=== PATIENT | female | born 1950 | race Caucasian/White ===

== ENCOUNTER 2016-09-02 13:33 | Outpatient (CLI) | payer MEDICARE, OTHER | END 2016-09-02 13:34 | disposition home or self-care (01) | DX: N39.0 Urinary tract infection, site not specified (principal) ==

== ENCOUNTER 2016-09-12 08:56 | Outpatient (CLI) | payer MEDICARE, OTHER | END 2016-09-12 08:57 | disposition home or self-care (01) | DX: N39.0 Urinary tract infection, site not specified (principal) ==

== ENCOUNTER 2016-09-30 10:31 | Outpatient (CLI) | payer MEDICARE, OTHER ==
[2016-09-30 18:39] LABS: BILIRUBIN,DIRECT 0.1 mg/dL (0.1-0.5); TOTAL PROTEIN 7.4 g/dL (6.7-8.2)
== END 2016-09-30 10:32 | disposition home or self-care (01) ==
LOC: LAB.F 10:31
PROVIDERS: ATTEND Podiatrist
DX: R53.1 Weakness (principal)
CPT/HCPCS: 36415; 80076

== ENCOUNTER 2017-02-26 08:55 | Outpatient (CLI) | payer MEDICARE, OTHER | END 2017-02-26 08:56 | disposition home or self-care (01) | LOC: LAB.F 08:55 | PROVIDERS: ATTEND Family Medicine | DX: N39.0 Urinary tract infection, site not specified (principal) | CPT/HCPCS: 87086 ==

== ENCOUNTER 2017-04-07 12:58 | Outpatient (CLI) | payer MEDICARE, OTHER ==
--- NOTE | 2017-04-08 17:08 | Mammography Report ---
DIGITAL SCREENING MAMMOGRAM: 04/07/2017 CLINICAL INDICATION: A 66-year-old with personal history of left breast cancer status post lumpectom y and chemoradiation. COMPARISON: 02/2016, 10/2014, 10/2013, 10/2012, 02/2012, 09/2011, 10/2010, 09/2010, 07/2010. TECHNIQUE: Routine CC and MLO projections were obtained of the breasts. The breasts again demonstrate heterogeneously dense fibroglandular parenchyma bilaterally. Coarse an d punctate, typically benign calcifications are present. Postoperative and post-treatment changes in the left breast are stable. No suspicious masses, clustered microcalcifications, or regions of arch itectural distortion are identified. IMPRESSION: BENIGN FINDINGS. RECOMMENDATION: ROUTINE ANNUAL SCREENING UNLESS OTHERWISE CLINICALLY INDICATED. BIRADS CATEGORY: 2, BENIGN FINDINGS. STANDARD QUALIFYING STATEMENTS 1. This examination was reviewed with the aid of Computed-Aided Detection (CAD). 2. A negative or benign imaging report should not delay biopsy if clinically suspicious findings are present. Consider surgical consultation if warranted. More than 5% of cancers are not identified b y imaging. 3. Dense breasts may obscure an underlying neoplasm. JOB #: [id number] EXT JOB #:[id number]
== END 2017-04-07 12:59 | disposition home or self-care (01) ==
LOC: DI 12:58
PROVIDERS: ATTEND Internal Medicine Hematology & Oncology
DX: Z12.31 Encounter for screening mammogram for malignant neoplasm of breast (principal); Z85.3 Personal history of malignant neoplasm of breast
CPT/HCPCS: 77067

== ENCOUNTER 2017-05-16 07:10 | Outpatient (CLI) | payer MEDICARE, OTHER ==
--- NOTE | 2017-05-16 07:46 | XRAY Report ---
EXAM: CHEST RADIOGRAPHY EXAM DATE: 05/16/2017 07:22 AM. CLINICAL HISTORY: Follow-up abnormal chest radiograph. COMPARISON: 03/17/2017. TECHNIQUE: 2 views. FINDINGS: Lungs/Pleura: Numerous bilateral pulmonary nodules are again seen. Focal opacity previously seen at t he lateral left lung base has resolved. No significant pleural effusion is seen. No pneumothorax is n oted. Mediastinum: Heart and mediastinal contours are unremarkable. Other: None. IMPRESSION: 1. Numerous bilateral pulmonary nodules are again seen. 2. Focal opacity previously seen at the lateral left lung base has resolved. [facility] Referring Provider Line: [phone] SITE ID: [id number]
== END 2017-05-16 07:20 ==
LOC: DI 07:10
PROVIDERS: ATTEND Nurse Practitioner Family
DX: R91.8 Other nonspecific abnormal finding of lung field (principal)
CPT/HCPCS: 71046

== ENCOUNTER 2017-05-20 11:03 | Outpatient (CLI) | payer MEDICARE, OTHER | END 2017-05-20 11:04 | disposition home or self-care (01) | LOC: DI 11:03 | PROVIDERS: ATTEND Internal Medicine Hematology & Oncology | DX: R06.00 Dyspnea, unspecified (principal) | CPT/HCPCS: 0399T; 93306 ==

== ENCOUNTER 2018-03-02 10:10 | Outpatient (CLI) | payer MEDICARE, OTHER | END 2018-03-02 10:11 | disposition home or self-care (01) | LOC: LAB.R 10:10 | PROVIDERS: ATTEND Physician Assistant Medical | DX: R30.0 Dysuria (principal); N76.0 Acute vaginitis | CPT/HCPCS: 87086; 87491; 87591 ==

== ENCOUNTER 2018-04-09 12:06 | Outpatient (CLI) | payer MEDICARE, OTHER ==
--- NOTE | 2018-04-12 09:41 | Mammography Report ---
Reason: SCREENING MAMMO Procedure Date: 04/09/2018 Accession Number: [id number] / [id number] Procedure: NNEKA - Screening Mammo w/Sanidp CPT Code: FULL RESULT: EXAM: Screening Mammo w/Sandip DATE: 04/09/2018 12:42 PM CLINICAL HISTORY: Screening encounter. Personal history of left breast triple negative breast cancer status post lumpectomy and chemoradiation in 2009. TECHNIQUE: Bilateral CC and MLO views were obtained. A left medially exaggerated CC view was also obtained. COMPARISON: 04/07/2017 through 10/17/2013. FINDINGS: The breasts demonstrate heterogeneously dense fibroglandular parenchyma bilaterally. Posttreatment changes are again seen in the left breast. On the left MLO projection the surgerized region of the breast appears stable. On the cc 2-D projection there is questionably architectural distortion and increasing soft tissue density posteriorly and medially, possibly soft tissue overlap due to compression technique. The finding is not definitely clarified with 3-D tomographic technique. Additional spot views with magnification and possibly ultrasound of the medial left breast posteriorly covering the area of incision are required for clarification. No suspicious masses, clustered microcalcifications, or regions of architectural distortion are identified in the right breast. IMPRESSION: Incomplete examination RECOMMENDATION: Additional evaluation of the left breast with spot magnification views posteriorly and medially, possibly with ultrasound as above. BIRADS CATEGORY 0: Incomplete examination STANDARD QUALIFYING STATEMENTS: 1. This examination was not reviewed with the aid of Computer-Aided Detection (CAD). 2. A negative or benign imaging report should not preclude biopsy if clinically suspicious findings are present. 3. Dense breasts may obscure an underlying neoplasm. 4. This examination was reviewed with the aid of 3D breast imaging (tomosynthesis).
== END 2018-04-09 12:07 | disposition home or self-care (01) ==
LOC: DI 12:06
PROVIDERS: ATTEND Internal Medicine Hematology & Oncology
DX: Z12.31 Encounter for screening mammogram for malignant neoplasm of breast (principal); Z08 Encounter for follow-up examination after completed treatment for malignant neoplasm; Z85.3 Personal history of malignant neoplasm of breast
CPT/HCPCS: 77063; 77067

== ENCOUNTER 2018-04-14 14:01 | Outpatient (CLI) | payer MEDICARE, OTHER ==
--- NOTE | 2018-04-14 16:01 | Mammography Report ---
Reason: ABN MAMMO - LT SPEC VIEWS Procedure Date: 04/14/2018 Accession Number: [id number] / [id number] Procedure: NNEKA - Diag Special Views Dig LT CPT Code: FULL RESULT: EXAM: Diag Special Views Dig LT DATE: 04/14/2018 2:41 PM CLINICAL HISTORY: Diagnostic mammogram and ultrasound. The patient was recalled for questionable architectural distortion and increasing soft tissue density posteriorly and medially in the left breast. TECHNIQUE: Left spot magnified CC and spot magnified MLO views were obtained. Focused breast ultrasound was performed. COMPARISON: 11/06/2014 through 04/09/2018. FINDINGS: The breasts demonstrate heterogeneously dense fibroglandular parenchyma. The questionable increasing soft tissue density resolves with spot magnification and is attributed to previous tissue overlap. The architectural distortion stands but is consistent with previous mammogram imaging and occurs in the region of known prior surgical intervention, adjacent to scar and typically benign. Focused breast ultrasound reveals typical features of scar with no separate suspicious findings. No suspicious calcifications, architectural distortion or masses are seen. IMPRESSION: Benign findings RECOMMENDATION: Recommend routine annual Screening mammography unless otherwise clinically indicated. BIRADS CATEGORY 2: Benign findings STANDARD QUALIFYING STATEMENTS: 1. This examination was not reviewed with the aid of Computer-Aided Detection (CAD). 2. A negative or benign imaging report should not delay biopsy if clinically suspicious findings are present. Consider surgical consultation if warrented. More than 5% of cancers are not identified by imaging. 3. Dense breasts may obscure an underlying neoplasm. 4. This examination was reviewed with the aid of 3D imaging (tomography).
== END 2018-04-14 14:02 | disposition home or self-care (01) ==
LOC: DI 14:01
PROVIDERS: ATTEND Internal Medicine Hematology & Oncology
DX: R92.8 Other abnormal and inconclusive findings on diagnostic imaging of breast (principal); R92.2 Inconclusive mammogram
CPT/HCPCS: 76642

== ENCOUNTER 2018-06-09 08:00 | Outpatient (CLI) | payer MEDICARE, OTHER | END 2018-06-09 23:59 | disposition home or self-care (01) | LOC: LAB.R 08:00 | PROVIDERS: ATTEND Physician Assistant Medical | DX: N89.8 Other specified noninflammatory disorders of vagina (principal) | CPT/HCPCS: 87491; 87591 ==

== ENCOUNTER 2018-07-23 09:18 | Outpatient (CLI) | payer MEDICARE, OTHER ==
[2018-07-23 18:14] LABS: BASOPHILS % (AUTO) 0.7 %; EOSINOPHILS # (AUTO) 0.2 10^3/uL (0.0-0.7); EOSINOPHILS % (AUTO) 3.2 %; HGB - HEMOGLOBIN 12.5 g/dL (12.0-16.0); LYMPHOCYTES # (AUTO) 1.3 10^3/uL (1.5-3.5); LYMPHOCYTES % (AUTO) 24.6 %; MEAN CORPUSCULAR HEMOGLOBIN 29.2 pg (27.0-31.0); MEAN CORPUSCULAR HGB CONC 32.9 g/dL (32.0-36.0); MEAN CORPUSCULAR VOLUME 88.6 fL (81.0-99.0); MEAN PLATELET VOLUME 8.9 fL (7.9-10.8); MONOCYTES # (AUTO) 0.5 10^3/uL (0.0-1.0); MONOCYTES % (AUTO) 9.4 %; NEUTROPHILS # (AUTO) 3.2 10^3/uL (1.5-6.6); NEUTROPHILS % (AUTO) 62.1 %; PLT - PLATELET COUNT 211 10^3/uL (130-450); RED BLOOD COUNT 4.28 10^6/uL (4.20-5.40); RED CELL DISTRIBUTION WIDTH 13.9 % (12.0-15.0); WHITE BLOOD COUNT 5.2 x10^3/uL (4.8-10.8)
[2018-07-23 18:40] LABS: ALBUMIN 4.2 g/dL (3.2-5.5); ALBUMIN/GLOBULIN RATIO 1.1 (1.0-2.2); ALKALINE PHOSPHATASE 103 IU/L (42-121); ALT ALANINE AMINOTRANSFERASE 10 IU/L (10-60); AST ASPARTATE AMINOTRANSFERASE 22 IU/L (10-42); BILIRUBIN,TOTAL 1.1 mg/dL (0.2-1.0); BUN - BLOOD UREA NITROGEN 13 mg/dL (6-20); CALCIUM 9.6 mg/dL (8.5-10.3); CARBON DIOXIDE - CO2 29 mmol/L (21-32); CHLORIDE 97 mmol/L (101-111); CHOL/HDL RATIO 5.9 (<4.4); CHOLESTEROL 260 mg/dL; GLUCOSE 102 mg/dL (70-100); HDL CHOLESTEROL 44 mg/dL; LDL CHOLESTEROL,CALCULATED 142 mg/dL; LDL/HDL RATIO 3.2 (<4.4); SODIUM 135 mmol/L (135-145); VLDL CHOLESTEROL 74 mg/dL
[2018-07-23 18:45] LABS: THYROID STIMULATING HORMONE 0.74 uIU/mL (0.34-5.60)
[2018-07-23 18:51] LABS: FERRITIN 131.9 ng/mL (11.0-306.8)
[2018-07-23 21:13] LABS: CREATININE 0.7 mg/dL (0.4-1.0); GFR - MDRD 83 (>89)
[2018-07-26 10:51] LABS: HOMOCYSTEINE 11.2 umol/L (<10.4)
== END 2018-07-23 09:19 | disposition home or self-care (01) ==
LOC: LAB.F 09:18
PROVIDERS: ATTEND Physician Assistant Medical
DX: Z51.81 Encounter for therapeutic drug level monitoring (principal); E78.5 Hyperlipidemia, unspecified; G25.9 Extrapyramidal and movement disorder, unspecified; R25.1 Tremor, unspecified; K50.90 Crohn's disease, unspecified, without complications; M19.90 Unspecified osteoarthritis, unspecified site; Z79.899 Other long term (current) drug therapy
CPT/HCPCS: 36415; 80053; 80061; 82607; 82728; 83090; 83721; 84207; 84443; 85025; 86376

== ENCOUNTER 2018-09-16 16:29 | Outpatient (CLI) | payer MEDICARE, OTHER ==
--- NOTE | 2018-09-17 10:26 | XRAY Report ---
Reason: KNEE JOINT PAIN,RIGHT Procedure Date: 09/16/2018 Accession Number: [id number] / [id number] Procedure: XR - Knee 4 View RT CPT Code: FULL RESULT: EXAM: RIGHT KNEE RADIOGRAPHY EXAM DATE: 09/16/2018 04:52 PM. CLINICAL HISTORY: Knee joint pain, right. COMPARISON: KNEE 4 VIEW RT 01/21/2016 9:46 AM. TECHNIQUE: 4 views. FINDINGS: Bones: Compared to 2016 marginal osteophytosis has mildly progressed. No fracture is detected. Posttraumatic changes along the lateral tibial spine appear stable. Joints: There is mild bilateral narrowing of the weightbearing compartments, similar to mildly increased compared to 2016. No subluxation. No joint effusion. Soft Tissues: Normal. No soft tissue swelling. IMPRESSION: Mild multicompartmental degenerative changes as described. [facility]
== END 2018-09-16 16:30 | disposition home or self-care (01) ==
LOC: DI 16:29
PROVIDERS: ATTEND Physician Assistant Medical
DX: M17.11 Unilateral primary osteoarthritis, right knee (principal)

== ENCOUNTER 2018-09-16 16:52 | Emergency (ER) | payer MEDICARE, OTHER ==
[2018-09-16 17:19] VITALS: BP 118/68
== END 2018-09-16 18:28 | disposition left against medical advice (07) ==
LOC: ED 16:52
DX: Z53.21 Procedure and treatment not carried out due to patient leaving prior to being seen by health care provider (principal)

== ENCOUNTER 2019-03-22 11:08 | Outpatient (CLI) | payer MEDICARE, OTHER ==
[2019-03-22 17:18] LABS: BASOPHILS % (AUTO) 0.7 %; EOSINOPHILS # (AUTO) 0.1 10^3/uL (0.0-0.7); EOSINOPHILS % (AUTO) 2.1 %; HGB - HEMOGLOBIN 12.4 g/dL (12.0-16.0); LYMPHOCYTES # (AUTO) 1.3 10^3/uL (1.5-3.5); LYMPHOCYTES % (AUTO) 22.6 %; MEAN CORPUSCULAR HEMOGLOBIN 29.5 pg (27.0-31.0); MEAN CORPUSCULAR HGB CONC 31.2 g/dL (32.0-36.0); MEAN CORPUSCULAR VOLUME 94.5 fL (81.0-99.0); MEAN PLATELET VOLUME 11.3 fL (7.9-10.8); MONOCYTES # (AUTO) 0.6 10^3/uL (0.0-1.0); MONOCYTES % (AUTO) 10.1 %; NEUTROPHILS # (AUTO) 3.6 10^3/uL (1.5-6.6); NEUTROPHILS % (AUTO) 64.1 %; PLT - PLATELET COUNT 219 10^3/uL (130-450); RED CELL DISTRIBUTION WIDTH 13.2 % (12.0-15.0); WHITE BLOOD COUNT 5.7 x10^3/uL (4.8-10.8)
[2019-03-22 17:59] LABS: ALBUMIN 4.7 g/dL (3.2-5.5); ALBUMIN/GLOBULIN RATIO 1.4 (1.0-2.2); ALKALINE PHOSPHATASE 96 IU/L (42-121); ALT ALANINE AMINOTRANSFERASE < 10 IU/L (10-60); AST ASPARTATE AMINOTRANSFERASE 20 IU/L (10-42); BILIRUBIN,TOTAL 0.9 mg/dL (0.2-1.0); BUN - BLOOD UREA NITROGEN 20 mg/dL (6-20); CALCIUM 9.6 mg/dL (8.5-10.3); CARBON DIOXIDE - CO2 31 mmol/L (21-32); CHLORIDE 103 mmol/L (101-111); CREATININE 0.7 mg/dL (0.4-1.0); GFR - MDRD 83 (>89); GLUCOSE 111 mg/dL (70-100); SODIUM 140 mmol/L (135-145); TOTAL PROTEIN 8.1 g/dL (6.7-8.2)
[2019-03-22 18:00] LABS: CRP - C-REACTIVE PROTEIN < 1.0 mg/dL (0-1.0)
== END 2019-03-22 11:09 | disposition home or self-care (01) ==
LOC: LAB.S 11:08
PROVIDERS: ATTEND Family Medicine
DX: K50.90 Crohn's disease, unspecified, without complications (principal); R10.9 Unspecified abdominal pain
CPT/HCPCS: 36415; 80053; 85025; 85651; 86140

== ENCOUNTER 2020-03-02 08:09 | Outpatient (CLI) | payer MEDICARE, OTHER ==
[2020-03-02 09:13] LABS: BASOPHILS % (AUTO) 0.7 %; EOSINOPHILS # (AUTO) 0.3 10^3/uL (0.0-0.7); EOSINOPHILS % (AUTO) 4.6 %; LYMPHOCYTES # (AUTO) 1.2 10^3/uL (1.5-3.5); LYMPHOCYTES % (AUTO) 18.8 %; MEAN CORPUSCULAR HEMOGLOBIN 30.1 pg (27.0-31.0); MEAN CORPUSCULAR HGB CONC 32.1 g/dL (32.0-36.0); MEAN CORPUSCULAR VOLUME 93.8 fL (81.0-99.0); MEAN PLATELET VOLUME 10.2 fL (7.9-10.8); MONOCYTES # (AUTO) 0.6 10^3/uL (0.0-1.0); MONOCYTES % (AUTO) 9.3 %; NEUTROPHILS # (AUTO) 4.1 10^3/uL (1.5-6.6); NEUTROPHILS % (AUTO) 66.3 %; PLT - PLATELET COUNT 200 10^3/uL (130-450); RED BLOOD COUNT 4.32 10^6/uL (4.20-5.40); RED CELL DISTRIBUTION WIDTH 13.2 % (12.0-15.0); WHITE BLOOD COUNT 6.1 x10^3/uL (4.8-10.8)
[2020-03-02 09:39] LABS: ALBUMIN 4.6 g/dL (3.2-5.5); ALBUMIN/GLOBULIN RATIO 1.4 (1.0-2.2); ALKALINE PHOSPHATASE 94 IU/L (42-121); ALT ALANINE AMINOTRANSFERASE 12 IU/L (10-60); AST ASPARTATE AMINOTRANSFERASE 24 IU/L (10-42); BUN - BLOOD UREA NITROGEN 16 mg/dL (6-20); CALCIUM 9.8 mg/dL (8.5-10.3); CARBON DIOXIDE - CO2 29 mmol/L (21-32); CHLORIDE 99 mmol/L (101-111); CHOLESTEROL 261 mg/dL; CREATININE 0.6 mg/dL (0.4-1.0); GLUCOSE 104 mg/dL (70-100); HDL CHOLESTEROL 52 mg/dL; LDL CHOLESTEROL,CALCULATED 162 mg/dL; LDL/HDL RATIO 3.1 (<4.4); SODIUM 137 mmol/L (135-145); VLDL CHOLESTEROL 47 mg/dL
--- NOTE | 2020-03-02 12:24 | DEXA Report ---
PROCEDURE: Dexa Spine and/or Hip INDICATIONS: POSTMENOPAUSAL STATUS TECHNIQUE: Dual energy x-ray absorptiometry (DXA) was performed on a SpinalMotion System. Regions measur ed are the AP Spine, femoral neck, and if needed forearm. COMPARISON: None. FINDINGS: Lumbar Spine: Bone Mineral Density 1.883 g/cm/cm,T score 5.9, normal Left Hip: Bone Mineral Density 1.0-3 g/cm/cm,T score 0.1, normal Left Femoral Neck: Bone Mineral Density 1.015 g/cm/cm, T score -0.2, normal (T score greater or equal to -1.0: NORMAL) (T score from -1.1 to -2.4: OSTEOPENIA) (T score less than or equal to -2.5 to: OSTEOPOROSIS) Impression: Normal bone mineral density. Patients with diagnosis of osteoporosis or osteopenia should have regular bone mineral density assess ment. For those eligible for Medicare, routine testing is allowed once every 2 years. Testing frequ ency can be increased for patients who have rapidly progressing disease or for those who are receivin g medical therapy to restore bone mass. Reviewed by: Tim Mcgrath MD on 03/02/2020 12:23 PM PDT Approved by: Tim Mcgrath MD on 03/02/2020 12:23 PM PDT Station ID: [id number]
== END 2020-03-02 08:10 | disposition home or self-care (01) ==
LOC: DI 08:09
PROVIDERS: ATTEND Family Medicine
DX: Z00.00 Encounter for general adult medical examination without abnormal findings (principal); Z78.0 Asymptomatic menopausal state; R73.01 Impaired fasting glucose; E78.5 Hyperlipidemia, unspecified
CPT/HCPCS: 36415; 77080; 80053; 80061; 83721; 84443; 85025

== ENCOUNTER 2020-03-02 08:10 | Outpatient (CLI) | payer MEDICARE, OTHER ==
--- NOTE | 2020-03-05 16:26 | Mammography Report ---
BILATERAL DIGITAL SCREENING MAMMOGRAM 3D/2D: 03/02/2020 CLINICAL: Routine screening. Personal history of left breast cancer. Comparison is made to exams dated: 04/14/2018 mammogram, 04/09/2018 mammogram, 04/07/2017 mammogram, 02/27/2016 mammogram, 10/17/2013 mammogram, and 02/18/2012 ultrasound - [facility]. The tissue of both breasts is extremely dense, which lowers the sensitivity of mammography. No significant masses, calcifications, or other findings are seen in either breast. There has been no significant interval change. IMPRESSION: NEGATIVE There is no mammographic evidence of malignancy. A 1 year screening mammogram is recommended. This exam was interpreted at Station ID: [id number]. NOTE: For mammograms, a report in lay terms will be sent to the patient. Approximately 15% of breast malignancies will not be visualized mammographically. In the management of a palpable breast mass, a negative mammogram must not discourage biopsy of a clinically suspicious lesion. Electronically Signed By: Adri urban/sami:03/02/2020 11:58:24 ACR BI-RADS Category 1: Negative 3341F PARENCHYMAL PATTERN: (VD) - The breast(s) demonstrate(s) extremely dense parenchyma, limiting the sen sitivity of mammography. BI-RADS CATEGORY: (1) - 1 RECOMMENDATION: (ANNUAL) - Recommend routine annual screening mammography. [id number] 1 year screening LATERALITY: (B)
== END 2020-03-02 08:11 | disposition home or self-care (01) ==
LOC: DI 08:10
PROVIDERS: ATTEND Family Medicine
DX: Z12.31 Encounter for screening mammogram for malignant neoplasm of breast (principal); Z85.3 Personal history of malignant neoplasm of breast
CPT/HCPCS: 77063; 77067

== ENCOUNTER 2020-11-08 08:00 | Outpatient (CLI) | payer MEDICARE, OTHER ==
--- NOTE | 2020-11-08 19:08 | XRAY Report ---
PROCEDURE: Knee 3 View LT INDICATIONS: LEFT KNEE PAIN TECHNIQUE: 3 views of the left knee(s) were acquired. COMPARISON: None. FINDINGS: Bones: No fractures or dislocations. No suspicious bony lesions. Moderate medial and patellofemora l compartment narrowing. Lateral patellar subluxation is present. Soft tissues: Mild joint effusion. No suspicious soft tissue calcifications. IMPRESSION: Arthritic changes above. No visualized acute fracture or dislocation. However, occult in jury cannot be excluded. Recommend short interval imaging follow-up in 7-10 days as clinically indica neal for additional evaluation. Reviewed by: Sandy Miranda MD on 11/08/2020 7:07 PM PDT Approved by: Sandy Miranda MD on 11/08/2020 7:07 PM PDT Station ID: [id number]
== END 2020-11-08 23:59 | disposition home or self-care (01) ==
LOC: DI.S 08:00
PROVIDERS: ATTEND Physician Assistant Medical
DX: M25.562 Pain in left knee (principal); M17.12 Unilateral primary osteoarthritis, left knee

== ENCOUNTER 2020-12-11 08:35 | Outpatient (CLI) | payer MEDICARE, OTHER ==
[2020-12-11 14:56] LABS: BASOPHILS # (AUTO) 0.1 10^3/uL (0.0-0.1); BASOPHILS % (AUTO) 0.9 %; EOSINOPHILS # (AUTO) 0.2 10^3/uL (0.0-0.7); EOSINOPHILS % (AUTO) 4.1 %; HCT - HEMATOCRIT 41.9 % (37.0-47.0); HGB - HEMOGLOBIN 13.3 g/dL (12.0-16.0); LYMPHOCYTES # (AUTO) 1.4 10^3/uL (1.5-3.5); LYMPHOCYTES % (AUTO) 23.8 %; MEAN CORPUSCULAR HEMOGLOBIN 30.1 pg (27.0-31.0); MEAN CORPUSCULAR HGB CONC 31.7 g/dL (32.0-36.0); MEAN CORPUSCULAR VOLUME 94.8 fL (81.0-99.0); MEAN PLATELET VOLUME 11.8 fL (7.9-10.8); MONOCYTES # (AUTO) 0.5 10^3/uL (0.0-1.0); MONOCYTES % (AUTO) 8.6 %; NEUTROPHILS # (AUTO) 3.5 10^3/uL (1.5-6.6); NEUTROPHILS % (AUTO) 62.1 %; PLT - PLATELET COUNT 238 10^3/uL (130-450); RED BLOOD COUNT 4.42 10^6/uL (4.20-5.40); RED CELL DISTRIBUTION WIDTH 13.4 % (12.0-15.0); WHITE BLOOD COUNT 5.7 x10^3/uL (4.8-10.8)
[2020-12-11 15:47] LABS: THYROID STIMULATING HORMONE 2.24 uIU/mL (0.34-5.60)
[2020-12-11 15:57] LABS: ALBUMIN 4.6 g/dL (3.2-5.5); ALBUMIN/GLOBULIN RATIO 1.5 (1.0-2.2); ALKALINE PHOSPHATASE 101 IU/L (42-121); ALT ALANINE AMINOTRANSFERASE 12 IU/L (10-60); AST ASPARTATE AMINOTRANSFERASE 23 IU/L (10-42); BILIRUBIN,TOTAL 0.8 mg/dL (0.2-1.0); BUN - BLOOD UREA NITROGEN 18 mg/dL (6-20); CALCIUM 9.9 mg/dL (8.5-10.3); CARBON DIOXIDE - CO2 29 mmol/L (21-32); CHLORIDE 99 mmol/L (101-111); CHOL/HDL RATIO 4.5 (<4.4); CHOLESTEROL 210 mg/dL; CREATININE 0.7 mg/dL (0.4-1.0); GFR - MDRD 82 (>89); GLUCOSE 111 mg/dL (70-100); HDL CHOLESTEROL 47 mg/dL; LDL CHOLESTEROL,CALCULATED 117 mg/dL; LDL/HDL RATIO 2.5 (<4.4); POTASSIUM 4.1 mmol/L (3.5-5.0); SODIUM 138 mmol/L (135-145); TOTAL PROTEIN 7.7 g/dL (6.7-8.2); TRIGLYCERIDES 230 mg/dL; VLDL CHOLESTEROL 46 mg/dL
== END 2020-12-11 08:36 | disposition home or self-care (01) ==
LOC: LAB.S 08:35
PROVIDERS: ATTEND Physician Assistant
DX: Z00.00 Encounter for general adult medical examination without abnormal findings (principal); G47.00 Insomnia, unspecified; R73.01 Impaired fasting glucose; E78.5 Hyperlipidemia, unspecified; K50.90 Crohn's disease, unspecified, without complications; J45.909 Unspecified asthma, uncomplicated; F32.9 Major depressive disorder, single episode, unspecified; K21.9 Gastro-esophageal reflux disease without esophagitis; G47.30 Sleep apnea, unspecified
CPT/HCPCS: 36415; 80053; 80061; 82306; 83721; 84443; 85025

== ENCOUNTER 2021-01-23 11:43 | Emergency (ER) | payer MEDICARE, OTHER ==
[2021-01-23 12:03] VITALS: BP 136/84
[2021-01-23] MEDS ORDERED: ALBUTEROL NEB 2.5 MG/3 ML INH STA (12:46)
[2021-01-23] MEDS ORDERED: predniSONE 20 MG TABLET PO STA (12:46)
--- NOTE | 2021-01-23 12:52 | ED Physician Documentation ---
History of Present Illness - Stated complaint Stated Complaint: SOA - Chief complaint Chief Complaint: Resp - History obtained from History obtained from: Patient - History of Present Illness Timing: How many weeks ago (1) Pain level max: 3 Pain level now: 3 - Additonal information Additional information: Patient is a 70-year-old female who presents to the emergency department stating she has been sick for the past week. She was seen at an urgent care proximately 5 days ago had a negative Covid test and was started on doxycycline for "bacterial bronchitis". She states she has not improved. Has a history of valley fever. She states she has inhalers at home but does not use them. Does not use her nebulizer either. No fevers. No chills. Dry cough. Nothing makes it better or worse Review of Systems Ten Systems: 10 systems reviewed and negative Constitutional: denies: Fever, Chills Nose: reports: Rhinorrhea / runny nose, Congestion Cardiac: denies: Chest pain / pressure, Palpitations Respiratory: reports: Cough, Wheezing. denies: Dyspnea GI: denies: Abdominal Pain, Nausea, Vomiting Skin: denies: Rash Musculoskeletal: denies: Neck pain, Back pain Neurologic: denies: Headache PD PAST MEDICAL HISTORY - Past Medical History Cardiovascular: None Respiratory: Sleep apnea, CPAP use Endocrine/Autoimmune: None GI: GERD, Diverticulitis PLUCK TRIMMER: Breast cancer : None HEENT: None Psych: Depression, Anxiety Musculoskeletal: None Derm: Other drug resistant infections - Past Surgical History Past Surgical History: Yes General: Colonoscopy, EGD /PLUCK TRIMMER: Hysterectomy HEENT: Tonsil/Adenoidectomy - Present Medications Home Medications: Ambulatory Orders Medication Instructions Recorded Confirmed Cholecalciferol (Vitamin D3) 4,000 unit PO DAILY 10/13/12 01/23/21 [Vitamin D] FLUoxetine [PROzac] 60 mg PO DAILY 10/13/12 01/23/21 Omeprazole [Prilosec] 40 mg PO DAILY 03/01/13 01/23/21 Pramipexole [Mirapex] 1 - 2 mg PO HS 03/28/13 01/23/21 Multivitamin [Multivitamins] 1 each PO DAILY 06/04/15 01/23/21 Albuterol Sulf [Ventolin Hfa 1 - 2 puffs INH Q4HR PRN #1 inhaler 03/17/17 01/23/21 Inhaler] Albuterol Sulf [Ventolin Hfa 1 - 2 puffs INH Q4HR PRN #1 inhaler 01/23/21 Inhaler] Aspirin EC [Ecotrin] 81 mg PO DAILY 01/23/21 01/23/21 Rosuvastatin Calcium [Crestor] 10 mg PO HS 01/23/21 01/23/21 predniSONE [Deltasone] 10 mg PO [id number] #42 tab 01/23/21 traZODone [Desyrel] 50 mg PO HS 01/23/21 01/23/21 - Allergies Allergies/Adverse Reactions: Allergies Allergy/AdvReac Type Severity Reaction Status Date / Time gabapentin Allergy Hives Verified 04/09/20 13:17 morphine AdvReac Anxiety Verified 04/09/20 13:17 -zines AdvReac Anxiety Uncoded 04/09/20 13:17 - Social History Does the pt smoke?: No Smoking Status: Never smoker Does the pt drink ETOH?: Yes Does the pt have substance abuse?: No - Immunizations Immunizations are current?: Yes PD ED PE NORMAL - Vitals Vital signs reviewed: Yes - General General: Alert and oriented X 3, No acute distress - HEENT HEENT: PERRL, Ears normal, Moist mucous membranes, Pharynx benign - Neck Neck: Supple, no meningeal sign - Cardiac Cardiac: RRR, Strong equal pulses - Respiratory Respiratory: No respiratory distress, Other (Mild diminished breath sounds bilaterally. No respiratory distress) - Abdomen Abdomen: Soft, Non tender, Non distended - Derm Derm: Warm and dry - Extremities Extremities: No edema, No calf tenderness / cord - Neuro Neuro: Alert and oriented X 3 - Psych Psych: Normal mood, Normal affect Results - Vitals Vitals: Vital Signs - 24 hr 01/23/21 01/23/21 11:58 13:04 Temperature 36.8 C Heart Rate 76 63 Respiratory 18 12 Rate Blood Pressure 136/84 H O2 Saturation 99 Oxygen O2 Source Room air - Rads (name of study) cxr Radiology: Final report received, EMP read contemporaneously, See rad report PD MEDICAL DECISION MAKING - ED course Complexity details: reviewed results, re-evaluated patient, considered differential, d/w patient ED course: 70-year-old female with a history of valley fever. Presents with what appears to be a viral URI. Feels better after steroid and albuterol treatment. We will continue supportive care. No evidence of bacterial infection. We will stop antibiotics. Patient is well-appearing, nontoxic. Afebrile. No hypoxia or respiratory distress. Patient counseled regarding signs and symptoms for which I believe and urgent re-evaluation would be necessary. Patient with good understanding of and agreement to plan and is comfortable going home at this time This document was made in part using voice recognition software. While efforts are made to proofread this document, sound alike and grammatical errors may occur. Patient had a recent negative Covid test Multiple bilateral pulmonary nodules. Patient has a history of breast cancer listed on prior clinical history. CT of the chest should be considered to evaluate these pulmonary nodules. Prior granulomatous is process. No consolidation identified. Departure - Departure Disposition: Home, Self Care Clinical Impression: Upper respiratory infection Qualifiers: URI type: unspecified viral URI Qualified Code(s): J06.9 - Acute upper respiratory infection, unspecified Condition: Good Instructions: ED Viral Syndrome Follow-Up: Vishnu Gomez MD [Primary Care Provider] - Within 1 week Prescriptions: Albuterol Sulf [Ventolin Hfa Inhaler] 1 - 2 puffs INH Q4HR PRN #1 inhaler PRN Reason: Shortness Of Air/Wheezing predniSONE [Deltasone] 10 mg PO [id number] #42 tab Comments: Your prescriptions were sent to [facility] in [place]. Please follow-up with your doctor for further care. Return if you worsen. Your x-ray does not show any signs of pneumonia today. You can stop the doxycycline. Discharge Date/Time: 01/23/21 14:24
--- NOTE | 2021-01-23 13:51 | XRAY Report ---
PROCEDURE: Chest 2 View X-Ray INDICATIONS: cough TECHNIQUE: 2 view(s) of the chest. COMPARISON: CT chest 05/16/2017.. FINDINGS: Surgical changes and devices: None. Lungs and pleura: No pleural effusions or pneumothorax. Bilateral nodular airspace opacity. There ap pears to be a upper lobe predominance. Numerous pulmonary nodules are seen on the prior CT from 2018. No consolidation identified. Mediastinum: Mediastinal contours are normal. Calcified nodes that are seen on prior CT are faintly visualized. Heart size is normal. Bones and chest wall: No suspicious bony abnormalities. Minimal scoliosis. Suspect cholelithiasis. IMPRESSION: Multiple bilateral pulmonary nodules. Patient has a history of breast cancer listed on prior clinical history. CT of the chest should be considered to evaluate these pulmonary nodules. Prior granulomatous is proc ess. No consolidation identified. Reviewed by: Jacobo Anna MD on 01/23/2021 12:50 PM AKDT Approved by: Jacobo Anna MD on 01/23/2021 12:50 PM AKDT Station ID: [id number]
== END 2021-01-23 14:24 | disposition home or self-care (01) ==
LOC: ED 11:43
DX: J06.9 Acute upper respiratory infection, unspecified (principal)
CPT/HCPCS: 71046; 94640; 94664; 99283; 99284; J7512

== ENCOUNTER 2021-03-07 08:00 | Outpatient (CLI) | payer MEDICARE, OTHER ==
[2021-03-07 15:54] LABS: BILIRUBIN,URINE NEGATIVE (NEGATIVE); GLUCOSE, URINE (UA) NEGATIVE (NEGATIVE); KETONES,URINE (UA) NEGATIVE (NEGATIVE); LEUKOCYTE ESTERASE, URINE NEGATIVE (NEGATIVE); NITRITE,URINE NEGATIVE (NEGATIVE); OCCULT BLOOD,URINE NEGATIVE (NEGATIVE); PH,URINE 5.5 PH (5.0-7.5); PROTEIN,URINE NEGATIVE (NEGATIVE); UROBILINOGEN,URINE 0.2 (NORMAL) E.U./dL (NORMAL)
[2021-03-07 15:56] LABS: CLARITY,URINE CLEAR (CLEAR)
[2021-03-07 16:29] LABS: BACTERIA,URINE Rare /HPF (None Seen); RBC,URINE None Seen /HPF (0-5); SQUAMOUS EPITHELIAL CELL,UR RARE Squamous (<= Few); WBC,URINE 0-3 /HPF (0-5)
[2021-03-07 16:30] LABS: CRYSTALS,URINE >50 Calcium Oxalate /LPF
== END 2021-03-07 23:59 | disposition home or self-care (01) ==
LOC: LAB 08:00
PROVIDERS: ATTEND Emergency Medicine
DX: R31.9 Hematuria, unspecified (principal)
CPT/HCPCS: 81001; 87086

== ENCOUNTER 2021-03-17 06:40 | Emergency (ER) | payer MEDICARE, OTHER ==
[2021-03-17] MEDS ORDERED: KETOROLAC 60 MG/2 ML VIAL IM STA (07:36)
[2021-03-17] MEDS ORDERED: DEXAMETHASONE 10 MG/ML VIAL PO STA (07:36)
[2021-03-17] MEDS ORDERED: CHERRY SYRUP 10 ML UDC PO ONE (07:36)
--- NOTE | 2021-03-17 07:39 | ED Physician Documentation ---
PD HPI NECK PAIN - Stated complaint Stated Complaint: NECK/RT ARM PX - Chief complaint Chief Complaint: Ext Problem - History obtained from History obtained from: Patient - History of Present Illness Timing - onset: How many days ago (4) Timing - duration: Days (4) Timing - details: Abrupt onset, Still present Location: Lower, Right Quality: Pain, Spasm, Sharp Associated symptoms: Weakness (to the right arm/hand secondary to pain) Improves with: Rest, Position, Meds Worsened by: Movement Contributing factors: Twisting Similar symptoms before: Has not had sx before Recently seen: Emergency Dept - Additional information Additional information: 70-year-old female with history of valley fever awoke 4 mornings ago with a stiff neck. She did okay the following day and then yesterday began to develop worsening pain in her neck she sat at her computer for a while when she turned her head she developed pain radiating down her right arm and she has severe pain with any movement of her right arm. She does not have pain with passive movement but with active movement. She does not have any numbness associated with this. She did not have any trauma to her neck. She has some pain to a tooth on the right side and has started on some amoxicillin. She took some tizanidine to help sleep. Review of Systems Constitutional: denies: Fever Eyes: denies: Decreased vision Ears: denies: Ear pain Nose: denies: Congestion Throat: reports: Dental pain / toothache Cardiac: denies: Chest pain / pressure, Palpitations Respiratory: denies: Dyspnea, Cough GI: denies: Abdominal Pain, Nausea, Vomiting, Constipation, Diarrhea : denies: Dysuria, Frequency PD PAST MEDICAL HISTORY - Past Medical History Cardiovascular: None Respiratory: Sleep apnea, CPAP use Neuro: Tremors Endocrine/Autoimmune: None GI: GERD, Diverticulitis CLINICAL RESEARCH MONITOR: Breast cancer : None HEENT: None Psych: Depression, Anxiety Musculoskeletal: None Derm: Other drug resistant infections - Past Surgical History Past Surgical History: Yes General: Colonoscopy, EGD /CLINICAL RESEARCH MONITOR: Hysterectomy HEENT: Tonsil/Adenoidectomy - Present Medications Home Medications: Ambulatory Orders Medication Instructions Recorded Confirmed Cholecalciferol (Vitamin D3) 4,000 unit PO DAILY 10/13/12 01/23/21 [Vitamin D] FLUoxetine [PROzac] 60 mg PO DAILY 10/13/12 01/23/21 Omeprazole [Prilosec] 40 mg PO DAILY 03/01/13 01/23/21 Pramipexole [Mirapex] 1 - 2 mg PO HS 03/28/13 01/23/21 Multivitamin [Multivitamins] 1 each PO DAILY 06/04/15 01/23/21 Albuterol Sulf [Ventolin Hfa 1 - 2 puffs INH Q4HR PRN #1 inhaler 03/17/17 01/23/21 Inhaler] Albuterol Sulf [Ventolin Hfa 1 - 2 puffs INH Q4HR PRN #1 inhaler 01/23/21 Inhaler] Aspirin EC [Ecotrin] 81 mg PO DAILY 01/23/21 01/23/21 Rosuvastatin Calcium [Crestor] 10 mg PO HS 01/23/21 01/23/21 predniSONE [Deltasone] 10 mg PO [id number] #42 tab 01/23/21 traZODone [Desyrel] 50 mg PO HS 01/23/21 01/23/21 Cyclobenzaprine [Flexeril] 10 mg PO TID PRN #20 tablet 03/17/21 HYDROcod/ACETAM 5/325 [[place] 5/325] 1 - 2 tablet PO Q6H PRN #14 tablet 03/17/21 dexAMETHasone [Decadron] 4 mg PO DAILY #5 tablet 03/17/21 - Allergies Allergies/Adverse Reactions: Allergies Allergy/AdvReac Type Severity Reaction Status Date / Time gabapentin Allergy Hives Verified 04/09/20 13:17 morphine AdvReac Anxiety Verified 04/09/20 13:17 -zines AdvReac Anxiety Uncoded 04/09/20 13:17 - Social History Does the pt smoke?: No Smoking Status: Never smoker Does the pt drink ETOH?: Yes Does the pt have substance abuse?: No - Immunizations Immunizations are current?: Yes PD ED PE NORMAL - Vitals Vital signs reviewed: Yes - General General: Alert and oriented X 3, Well developed/nourished, Other (Taper/Finisher tone and flattened affect belie the pain. The patient also whinches in pain whenever she moves her neck or arm.) - HEENT HEENT: Atraumatic, PERRL, EOMI - Neck Neck: Supple, no meningeal sign, No bony TTP, Other (dense spasm of the trapezius along the right side into the occiput. ) - Cardiac Cardiac: RRR, No murmur - Respiratory Respiratory: No respiratory distress, Clear bilaterally - Derm Derm: Normal color, Warm and dry, No rash - Extremities Extremities: No deformity, No edema, Other (There is pain with any movement of the right upper ext. There is a weak boiler fitter on the right related to pain. ) - Neuro Neuro: Alert and oriented X 3, hog sawyer 2-12 intact, No sensory deficit, Normal speech, Other (weakness to the right hand boiler fitter. 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 She is administered dexamethasone and Toradol with marked improvement in her pain and ability to move her neck around. We will place her on a short course of pain medication muscle relaxant as well as 5 days of dexamethasone. Departure - Departure Disposition: 01 Home, Self Care Clinical Impression: Torticollis, acute, Cervical radiculopathy Condition: Stable Instructions: ED Spasm Neck No Injury, ED Cervical Radiculopathy Follow-Up: Vishnu Gomez MD [Primary Care Provider] - Prescriptions: dexAMETHasone [Decadron] 4 mg PO DAILY #5 tablet Cyclobenzaprine [Flexeril] 10 mg PO TID PRN #20 tablet PRN Reason: Spasms HYDROcod/ACETAM 5/325 [[place] 5/325] 1 - 2 tablet PO Q6H PRN #14 tablet PRN Reason: Pain
[2021-03-17 09:06] VITALS: BP 129/79
== END 2021-03-17 09:16 | disposition home or self-care (01) ==
LOC: ED 06:40
DX: M43.6 Torticollis (principal); M54.12 Radiculopathy, cervical region
CPT/HCPCS: 96372; 99283; 99284; A9270

== ENCOUNTER 2022-04-08 14:33 | Emergency (ER) | payer OTHER, MEDICARE ==
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
[2022-04-08 17:02] VITALS: BP 116/71
== END 2022-04-08 17:01 | disposition home or self-care (01) ==
LOC: ED 14:33
DX: M54.32 Sciatica, left side (principal)
CPT/HCPCS: 99282; 99284

== ENCOUNTER 2022-09-22 15:29 | Emergency (ER) | payer MEDICARE, OTHER ==
[2022-09-22 15:44] VITALS: BP 124/74
[2022-09-22] MEDS ORDERED: PROPARACAINE 0.5% OPHTH DROPS 15 ML LEFTEYE STA (16:02)
[2022-09-22] MEDS ORDERED: AMOX/CLAV 875 MG/125 MG TABLET PO STA (16:17)
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
== END 2022-09-22 16:51 | disposition home or self-care (01) ==
LOC: ED 15:29
DX: L03.213 Periorbital cellulitis (principal); Z79.899 Other long term (current) drug therapy; Z79.82 Long term (current) use of aspirin
CPT/HCPCS: 99282; 99283; A9270; J3490

== ENCOUNTER 2022-11-05 07:00 | Outpatient (CLI) | payer MEDICARE, OTHER | END 2022-11-05 23:59 | disposition home or self-care (01) | LOC: LAB.S 07:00 | PROVIDERS: ATTEND Emergency Medicine | DX: J02.8 Acute pharyngitis due to other specified organisms (principal) | CPT/HCPCS: 87070 ==

== ENCOUNTER 2023-07-28 06:57 | Emergency (ER) | payer MEDICARE, OTHER ==
--- NOTE | 2023-07-28 07:18 | ED Physician Documentation ---
PD HPI HEENT - Stated complaint Stated Complaint: PX, THROAT - Chief complaint Chief Complaint: Resp - History obtained from History obtained from: Patient - History of Present Illness Timing - onset: How many months ago (3), Other (Very nice 72-year-old lady with history of breast cancer, asthma, remote history of valley fever, presenting with cough and pleuritic chest pain. Patient has been having increase in her cough over the past 3 months she has had 2 different courses of antibiotics the last was about a month ago.) Timing - duration: Months Timing - details: Waxing and waning Pain level max: 2 Pain level now: 1 Location: Other (across her chest w cough) Worsens: Other (cough) Associated symptoms: Fever, Cough Recently seen: Clinic - Additional information Additional information: She had an episode of coughing last night which resulted in some muscular type chest pain. She is also concerned about her upper airway and feels like she should have some sort of endoscopic evaluation. She has no stridor she is swallowing her secretions and in no distress upon arrival in the emergency department. She does have chest pain with coughing. Ongoing cough with green sputum production. Review of Systems Constitutional: reports: Fever Nose: reports: Rhinorrhea / runny nose Throat: reports: Sore throat Cardiac: reports: Chest pain / pressure. denies: Calf pain Respiratory: reports: Cough, Wheezing. 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 : None HEENT: None Psych: Depression, Anxiety Musculoskeletal: None Derm: Other drug resistant infections - Past Surgical History Past Surgical History: Yes General: Colonoscopy, EGD /WELD TECHNICIAN: Hysterectomy HEENT: Tonsil/Adenoidectomy - Present Medications Home Medications: Ambulatory Orders Medication Instructions Recorded Confirmed Cholecalciferol (Vitamin D3) 4,000 unit PO DAILY 10/13/12 07/28/23 [Vitamin D] Omeprazole [Prilosec] 40 mg PO DAILY 03/01/13 07/28/23 Pramipexole [Mirapex] 2 mg PO HS 03/28/13 07/28/23 Albuterol Sulf [Ventolin Hfa 1 - 2 puffs INH Q4HR PRN #1 inhaler 01/23/21 07/28/23 Inhaler] Aspirin EC [Ecotrin] 81 mg PO DAILY 01/23/21 07/28/23 HYDROcod/ACETAM 5/325 [[place] 5/325] 1 - 2 tablet PO Q6H PRN #14 tablet 04/08/22 07/28/23 Amox/Clav 875/125 [Augmentin] 1 each PO Q12H #20 tablet 07/28/23 DULoxetine [Cymbalta] 1 cap PO DAILY 07/28/23 07/28/23 predniSONE [Deltasone] 60 mg PO DAILY 5 Days #15 tablet 07/28/23 - Allergies Allergies/Adverse Reactions: Allergies Allergy/AdvReac Type Severity Reaction Status Date / Time gabapentin Allergy Hives Verified 07/28/23 07:37 morphine AdvReac Anxiety Verified 07/28/23 07:37 -zines AdvReac Mild Anxiety Uncoded 07/28/23 07:37 - Social History Does the pt smoke?: No Smoking Status: Never smoker Does the pt drink ETOH?: Yes Does the pt have substance abuse?: No - Immunizations Immunizations are current?: Yes PD ED PE NORMAL - General General: Alert and oriented X 3 - HEENT HEENT: Atraumatic - Neck Neck: Supple, no meningeal sign - Cardiac Cardiac: RRR, No murmur - Respiratory Respiratory: No respiratory distress, Clear bilaterally, Other (Anterior chest wall tender to palpation, no crepitus.) - Abdomen Abdomen: Normal bowel sounds - Derm Derm: Normal color - Extremities Extremities: No deformity, No edema, No calf tenderness / cord - Neuro Neuro: Alert and oriented X 3, No motor deficit - Psych Psych: Normal mood Results - Vitals Vitals: Vital Signs - 24 hr 07/28/23 07:24 Temperature 36.8 C Heart Rate 66 Respiratory 14 Rate Blood Pressure 119/67 O2 Saturation 98 Oxygen O2 Source Room air - Labs Labs: Laboratory Tests 07/28/23 07:37 SARS-CoV-2 (PCR) NOT DETECTED PD Medical Decision Making - ED course Complexity details: reviewed old records, considered differential ED course: Patient with 3 months of intermittent cough in the setting of some chronic lung disease. She follows with a filter tender and has an appointment on August 05, 9 days from now. She is in no distress oxygenation is fine.On my personal interpretation her chest x-ray shows numerous pulmonary nodules possible peribronchial thickening centrally. Await formal radiology review. Per rads, her chest x-ray shows Mild perihilar and bronchial opacities, likely infectious/inflammatory. No dense airspace disease or pleural effusion. Numerous pulmonary nodules again seen. Consider future imaging surveillance, ideally with CT, given patient's prior malignancy history. Given that she has wheezing and bronchospasm will add prednisone and start her on antibiotics given chest x-ray findings. She needs to have follow-up CT, this can be followed up with her filter tender. No pneumothorax or any signs of other intra thoracic emergency. Will treat as pneumonia. covid negative. well-appearing, NAD. would benefit from her pulmonary followup on 08/05 Will Rx 5 days of prednisone and a course of Augmentin. She can continue on the Tessalon for the throat and upper airway irritation symptoms. Departure - Departure Disposition: Home, Self Care Clinical Impression: Pulmonary nodule Pneumonia Qualifiers: Pneumonia type: due to unspecified organism Laterality: bilateral Instructions: Pneumonia Dc Follow-Up: LONG ALEGRIA ARNP [Physician No Access] - Prescriptions: Amox/Clav 875/125 [Augmentin] 1 each PO Q12H #20 tablet predniSONE [Deltasone] 60 mg PO DAILY 5 Days #15 tablet Comments: You have had multiple pulmonary nodules on your chest x-ray for quite some time. These are similar to your last chest x-ray in 2020. Radiology recommends that you have follow-up imaging, ideally a chest CAT scan to evaluate these more thoroughly. Your pulmonary practitioner can help with this. Forms: PCP List
--- NOTE | 2023-07-28 08:02 | XRAY Report ---
PROCEDURE: Chest 1V INDICATIONS: Productive cough x 2 weeks TECHNIQUE: One view of the chest was acquired. COMPARISON: 01/23/2021 FINDINGS: Surgical changes and devices: None. Lungs and pleura: Numerous pulmonary nodules are present, probably similar compared to prior radiogr aphy in 2020. Mild perihilar opacities and bronchial thickening. No drainable pleural effusions. Mediastinum: Normal heart size Bones and chest wall: Degenerative changes. IMPRESSION: Mild perihilar and bronchial opacities, likely infectious/inflammatory. No dense airspace disease or pleural effusion. Numerous pulmonary nodules again seen. Consider future imaging surveillance, ideally with CT, given patient's prior malignancy history. Reviewed by: Jose Maria Do MD on 07/28/2023 8:01 AM PDT Approved by: Jose Maria Do MD on 07/28/2023 8:01 AM PDT Station ID: [id number]
[2023-07-28 09:18] VITALS: BP 124/77; O2SAT 96
== END 2023-07-28 09:12 | disposition home or self-care (01) ==
LOC: ED 06:57
DX: R91.1 Solitary pulmonary nodule (principal); J18.9 Pneumonia, unspecified organism; Z11.52 Encounter for screening for COVID-19
CPT/HCPCS: 87635; 99283; 99284

== ENCOUNTER 2023-08-16 17:01 | Emergency (ER) | payer MEDICARE, OTHER ==
[2023-08-16 17:10] VITALS: BP 150/70; O2SAT 100
--- NOTE | 2023-08-16 17:18 | ED Physician Documentation ---
PD HPI UPPER EXT INJURY - Stated complaint Stated Complaint: LT HAND PX - Chief complaint Chief Complaint: Ext Problem - History obtained from History obtained from: Patient - History of Present Illness Location: Left, Finger (index finger proximal portion) Type of injury: Twist (she states she was lifting object yesterday and finger twisted some but not reallly hurting at the time. has noted swelling and purple ecchymosis of finger today. Able to move it without much pain.) Where injury occurred: Home Timing - onset: Yesterday Timing - duration: Days (1) Timing - details: Gradual onset, Still present Worsened by: No: Moving, Palpating Associated symptoms: Swelling, Discolored (purple bruising.). 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 : None HEENT: None Psych: Depression, Anxiety Musculoskeletal: None Derm: Other drug resistant infections - Past Surgical History Past Surgical History: Yes General: Colonoscopy, EGD /VICE PRESIDENT QUALITY: Hysterectomy HEENT: Tonsil/Adenoidectomy - Present Medications Home Medications: Ambulatory Orders Medication Instructions Recorded Confirmed Cholecalciferol (Vitamin D3) 4,000 unit PO DAILY 10/13/12 07/28/23 [Vitamin D] Omeprazole [Prilosec] 40 mg PO DAILY 03/01/13 07/28/23 Pramipexole [Mirapex] 2 mg PO HS 03/28/13 07/28/23 Albuterol Sulf [Ventolin Hfa 1 - 2 puffs INH Q4HR PRN #1 inhaler 01/23/21 07/28/23 Inhaler] Aspirin EC [Ecotrin] 81 mg PO DAILY 01/23/21 07/28/23 HYDROcod/ACETAM 5/325 [[place] 5/325] 1 - 2 tablet PO Q6H PRN #14 tablet 04/08/22 07/28/23 Amox/Clav 875/125 [Augmentin] 1 each PO Q12H #20 tablet 07/28/23 DULoxetine [Cymbalta] 1 cap PO DAILY 07/28/23 07/28/23 predniSONE [Deltasone] 60 mg PO DAILY 5 Days #15 tablet 07/28/23 - Allergies Allergies/Adverse Reactions: Allergies Allergy/AdvReac Type Severity Reaction Status Date / Time gabapentin Allergy Hives Verified 08/16/23 17:04 morphine AdvReac Anxiety Verified 08/16/23 17:04 -zines AdvReac Mild Anxiety Uncoded 08/16/23 17:04 - Social History Does the pt smoke?: No Smoking Status: Never smoker Does the pt drink ETOH?: Yes Does the pt have substance abuse?: No - Immunizations Immunizations are current?: Yes PD ED PE NORMAL - Vitals Vital signs reviewed: Yes - General General: Alert and oriented X 3, No acute distress, Well developed/nourished - Derm Derm: Normal color, Warm and dry - Extremities Extremities: Other (good cap refill at tip. Has purple ecchymosis of mainly palmar aspect of index finger proximally. Able to flex and extend against resistance. No bony tenderness. ) - Neuro Neuro: No motor deficit, No sensory deficit Results - Vitals Vitals: Vital Signs - 24 hr 08/16/23 17:04 Temperature 36.8 C Heart Rate 60 Respiratory 16 Rate Blood Pressure 150/70 H O2 Saturation 100 Oxygen O2 Source Room air - Rads (name of study) hand right Relevant Findings:: Prelim report reviewed, EMP independent interpretation of test (no fractures. Advanced osteoarthritic ahnges. ) PD Medical Decision Making - ED course Complexity details: reviewed results (severe arthritis in fingers without fracture. ), considered differential (clinically does not seem acute fracture. Likely injured small blood vessel or developed bruise that is now just showing to surface. No apparent nerve/tedneon injury. ), d/w patient Departure - Departure Disposition: 01 Home, Self Care Clinical Impression: Traumatic ecchymosis of finger Condition: Stable Record reviewed to determine appropriate education?: Yes Comments: The x-ray of your finger and hand shows significant arthritis which of course you already knew. No signs of obvious fractures or dislocation. Examination of your finger does not have any apparent disruption of the ligaments or tendons. It seems likely just popped a small blood vessel which is now bruising. I would anticipate this improving without particular treatment. Gentle range of motion if it is hurting otherwise activity as tolerated. The bruising will go from purple to green to yellow as it resolves and may take a week or more to fully dissipate. Forms: PCP List Discharge Date/Time: 08/16/23 17:46
--- NOTE | 2023-08-16 17:54 | XRAY Report ---
PROCEDURE: Finger(s) LT INDICATIONS: Trauma TECHNIQUE: AP hand, 2 views of the second finger(s) acquired. COMPARISON: None FINDINGS: Bones: No fractures or dislocations. No suspicious bony lesions. Proximal and distal interphalange al joint space narrowing with marginal osteophytes. Third MCP and first CMC arthritic changes noted a s well. Soft tissues: No suspicious soft tissue calcifications. 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
== END 2023-08-16 17:46 | disposition home or self-care (01) ==
LOC: ED 17:01
DX: S60.022A Contusion of left index finger without damage to nail, initial encounter (principal); X50.1XXA Overexertion from prolonged static or awkward postures, initial encounter
CPT/HCPCS: 99283

== ENCOUNTER 2023-12-05 21:50 | Emergency (ER) | payer MEDICARE, OTHER ==
--- NOTE | 2023-12-05 22:28 | ED Physician Documentation ---
PD HPI LOWER EXT INJURY - Stated complaint Stated Complaint: RT LEG PX - Chief complaint Chief Complaint: Trauma Ext - History obtained from History obtained from: Patient - History of Present Illness PD HPI LOW EXT INJURY LOCATION: Right, Lower leg Type of injury: Twist, Blunt / blow Where injury occurred: Home Timing - onset: How many days ago (10) Timing - duration: Days Timing - details: Gradual onset, Still present Improved by: Rest Worsened by: Moving, Palpating Associated symptoms: No: Weakness, Numbness, Tingling, Swelling Contributing factors: No: Anticoagulated Similar symptoms before: Has not had sx before Recently seen: Not recently seen - Additional information Additional information: Isacc Ruiz is a 73-year-old female who indicates to me that she has had an incident several days ago where she was running to turn off a hose and hit her anterior right calf on a brick wall. Since that time she has begun to develop pain from her knee up to her hip. She has been taking some leftover codeine for pain control and she is now out of that. 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 : None HEENT: None Psych: Depression, Anxiety Musculoskeletal: None Derm: Other drug resistant infections - Past Surgical History Past Surgical History: Yes General: Colonoscopy, EGD /CHESTNUT TANNER: Hysterectomy HEENT: Tonsil/Adenoidectomy - Present Medications Home Medications: Ambulatory Orders Medication Instructions Recorded Confirmed Cholecalciferol (Vitamin D3) 4,000 unit PO DAILY 10/13/12 12/05/23 [Vitamin D] Omeprazole [Prilosec] 40 mg PO DAILY 03/01/13 12/05/23 Pramipexole [Mirapex] 2 mg PO HS 03/28/13 12/05/23 Albuterol Sulf [Ventolin Hfa 1 - 2 puffs INH Q4HR PRN #1 inhaler 01/23/21 12/05/23 Inhaler] Aspirin EC [Ecotrin] 81 mg PO DAILY 01/23/21 12/05/23 DULoxetine [Cymbalta] 1 cap PO DAILY 07/28/23 12/05/23 HYDROcod/ACETAM 5/325 [[place] 5/325] 1 - 2 tablet PO Q6H PRN #14 tablet 12/06/23 - Allergies Allergies/Adverse Reactions: Allergies Allergy/AdvReac Type Severity Reaction Status Date / Time gabapentin Allergy Hives Verified 12/05/23 22:13 morphine AdvReac Anxiety Verified 12/05/23 22:13 -zines AdvReac Mild Anxiety Uncoded 12/05/23 22:13 - Social History Does the pt smoke?: No Smoking Status: Never smoker Does the pt drink ETOH?: Yes Does the pt have substance abuse?: No - Immunizations Immunizations are current?: Yes PD ED PE NORMAL - Vitals Vital signs reviewed: Yes (normal) - General General: Alert and oriented X 3, No acute distress, Well developed/nourished - HEENT HEENT: Atraumatic, PERRL, EOMI - Neck Neck: Supple, no meningeal sign, No bony TTP - Respiratory Respiratory: No respiratory distress - Derm Derm: Normal color, Warm and dry - Extremities Extremities: No deformity, No edema, Other (Examination of the right knee reveals stable ligaments to testing no evidence of joint effusion and normal range of motion.) - Neuro Neuro: Alert and oriented X 3, mold setter 2-12 intact, No motor deficit, No sensory deficit, Normal speech Eye Opening: Spontaneous Motor: Obeys Commands Verbal: Oriented GCS Score: 15 - Psych Psych: Normal mood, Normal affect Results - Vitals Vitals: Vital Signs - 24 hr 12/05/23 12/05/23 21:54 23:56 Temperature 36.8 C 36.8 C Heart Rate 86 67 Respiratory 18 14 Rate Blood Pressure 108/68 127/72 O2 Saturation 97 99 Oxygen O2 Source Room air - Rads (name of study) femur R Relevant Findings:: Prelim report reviewed (Impression: No acute fractures can be seen on these plain films.), EMP independent interpretation of test, See rad report knee R Relevant Findings:: Prelim report reviewed (Impression: Negative for acute fracture by plain film. No significant joint effusion. Underlying degenerative changes are seen, which are worse involving the patellofemoral compartment.), EMP independent interpretation of test, See rad report PD Medical Decision Making - ED course Complexity details: reviewed old records, reviewed results, re-evaluated patient, considered differential, d/w patient, d/w family ED course: Sandie Ruiz is a 73-year-old female who presents to the emergency department with a weeklong history of pain to her right lower extremity which is worse with weightbearing. She relates a history that she was running to turn off a hose and banged her lower extremity against a brick wall. She has a contusion to the calf anteriorly but she is having pain in her knee extending up to her hip with weightbearing and with walking. She has been using some codeine and she has run out of codeine. She used codeine that she has had from prior pain experiences. She is not on pain management. Departure - Departure Disposition: 01 Home, Self Care Clinical Impression: Muscle strain of right lower extremity Qualifiers: Encounter type: initial encounter Qualified Code(s): S86.911A - Strain of unspecified muscle(s) and tendon(s) at lower leg level, right leg, initial encounter Condition: Stable Instructions: ED Strain Muscle Ext Follow-Up: Chapincito Chong MD [Provider Admit Priv/Credential] - [facility] [Provider Group] Prescriptions: HYDROcod/ACETAM 5/325 [[place] 5/325] 1 - 2 tablet PO Q6H PRN #14 tablet PRN Reason: Pain Comments: Isacc today it looks like you have strained the muscles of your right lower extremity and this usually takes a week to 10 days to have some improvement and may bother you for as long as 2 to 3 weeks. The acute pain should be over within the next few days. I have E scribed some [place] for you to use to the [facility] in [place]. If you do not have improvement as expected a follow-up with the orthopedic doctor is indicated. Forms: PCP List Discharge Date/Time: 12/06/23 00:52
[2023-12-05] MEDS: HYDROcod/ACETAM 5/325 MG TABLET PO STA (23:11)
--- NOTE | 2023-12-05 23:33 | XRAY Report ---
PROCEDURE: Femur 2+V RT INDICATIONS: twist of LE pain from knee to hip 10 days TECHNIQUE: 2 views of the femur were acquired. COMPARISON: Correlation is made with the accompanying imaging. FINDINGS: Bones: No fractures or dislocations. No suspicious bony lesions. Age-appropriate degenerative bagley es are seen. Soft tissues: No suspicious soft tissue calcifications or masses. IMPRESSION: No acute fracture can be seen on these plain films. Reviewed by: Cory Tomlin MD on 12/05/2023 10:32 PM JUJU Approved by: Cory Tomlin MD on 12/05/2023 10:32 PM AKPA Station ID: [id number]
--- NOTE | 2023-12-05 23:34 | XRAY Report ---
PROCEDURE: Knee 3V RT INDICATIONS: twist pain posterior and to the hip TECHNIQUE: 3 views of the knee(s) were acquired. COMPARISON: Correlation is made with the accompanying imaging. FINDINGS: Bones: No fractures or dislocations. No suspicious bony lesions. There is mild medial femorotibial joint space narrowing, with associated degenerative change with subchondral sclerosis and osteophyte formation. On the sunrise view, there is moderate to severe patellofemoral joint space narrowing, wit h associated remodeling changes, including spurs along the margins of the patella. Soft tissues: No knee joint effusion. No suspicious soft tissue calcifications or masses. IMPRESSION: Negative for acute fracture by plain film. No significant joint effusion. Underlying degenerative changes are seen, which are worst involving the patellofemoral compartment. Reviewed by: Cory Tomlin MD on 12/05/2023 10:33 PM JUJU Approved by: Cory Tomlin MD on 12/05/2023 10:33 PM JUJU Station ID: [id number]
[2023-12-06 00:14] VITALS: BP 127/72; O2SAT 99
== END 2023-12-06 00:52 | disposition home or self-care (01) ==
LOC: ED 21:50
DX: S80.11XA Contusion of right lower leg, initial encounter (principal); S86.911A Strain of unspecified muscle(s) and tendon(s) at lower leg level, right leg, initial encounter; W22.01XA Walked into wall, initial encounter; Y93.02 Activity, running
CPT/HCPCS: 73552; 73562; 99283; 99284; A9270